=== PATIENT | male | born 1995 | race Two or more races ===

== ENCOUNTER 2017-08-15 23:05 | Inpatient (IN) | payer SELFPAY ==
[2017-08-15] MEDS ORDERED: FENTANYL CITRATE INJ/PF 100 MCG/2 ML AMPUL IV ONE (23:38)
--- NOTE | 2017-08-15 23:52 | ER Document Report ---
ED General - General Chief Complaint: Flank Pain Stated Complaint: FLANK PAIN Time Seen by Provider: 08/15/17 23:30 Mode of Arrival: Ambulatory Information source: Patient Notes: 22-year-old male presents with complaints of left flank pain difficulty urinating. Patient notes symptoms started 3 hours ago, upon examination of his abdomen there is an abscess noted of the right abdominal wall which she states has been there for 3 month duration Patient denies any fevers or chills TRAVEL OUTSIDE OF THE [place] IN LAST 30 DAYS: No - HPI Onset: Just prior to arrival Onset/Duration: Sudden Quality of pain: Achy Severity: Mild Pain Level: 1 Associated symptoms: Other Exacerbated by: Denies Relieved by: Denies Similar symptoms previously: Yes - History of kidney stone Recently seen / treated by doctor: No - Related Data Allergies/Adverse Reactions: No Known Allergies Allergy (Unverified 03/14/14 19:06) Past Medical History - Social History Smoking Status: Current Every Day Smoker Cigarette use (# per day): No Chew tobacco use (# tins/day): Yes Smoking Education Provided: No Frequency of alcohol use: Occasional Drug Abuse: None Family History: Reviewed & Not Pertinent Patient has suicidal ideation: No Patient has homicidal ideation: No Renal/ Medical History: Denies: Hx Peritoneal Dialysis - Immunizations Hx Diphtheria, Pertussis, Tetanus Vaccination: Yes Review of Systems - Review of Systems Notes: REVIEW OF SYSTEMS: CONSTITUTIONAL : Denies fever, chills, or sweats. Denies recent illness. EENT: Denies eye, ear, throat, or mouth pain or symptoms. Denies nasal or sinus congestion or discharge. Denies throat, tongue, or mouth swelling or difficulty swallowing. CARDIOVASCULAR: Denies chest pain. Denies palpitations or racing or irregular heart beat. Denies ankle edema. RESPIRATORY: Denies cough, cold, or chest congestion. Denies shortness of breath, difficulty breathing, or wheezing. GASTROINTESTINAL: Admits to left flank pain GENITOURINARY: Denies difficulty urinating, painful urination, burning, frequency, blood in urine, or discharge. MUSCULOSKELETAL: Denies back or neck pain or stiffness. Denies joint pain or swelling. SKIN: Abscess right abdomen HEMATOLOGIC : Denies easy bruising or bleeding. LYMPHATIC: Denies swollen, enlarged glands. NEUROLOGICAL: Denies confusion or altered mental status. Denies passing out or loss of consciousness. Denies dizziness or lightheadedness. Denies headache. Denies weakness or paralysis or loss of use of either side. Denies problems with gait or speech. Denies sensory loss, numbness, or tingling. Denies seizures. PSYCHIATRIC: Denies anxiety or stress. Denies depression, suicidal ideation, or homicidal ideation. ALL OTHER SYSTEMS REVIEWED AND NEGATIVE. Dictation was performed using [employer] voice recognition software PHYSICAL EXAMINATION: GENERAL: Well-appearing, well-nourished and in no acute distress. HEAD: Atraumatic, normocephalic. EYES: Pupils equal round and reactive to light, extraocular movements intact, sclera anicteric, conjunctiva are normal. ENT: Nares patent, oropharynx clear without exudates. Moist mucous membranes. NECK: Normal range of motion, supple without lymphadenopathy LUNGS: Breath sounds clear to auscultation bilaterally and equal. No wheezes rales or rhonchi. HEART: Regular rate and rhythm without murmurs ABDOMEN: Left CVA tenderness Musculoskeletal: Normal range of motion, no pitting or edema. No cyanosis. NEUROLOGICAL: Cranial nerves grossly intact. Normal speech, normal gait. Normal sensory, motor exams PSYCH: Normal mood, normal affect. SKIN: Right abdominal wall abscess measuring 10 x 10 cm with erythema Physical Exam - Vital signs Vitals: Temp Pulse BP Pulse Ox 97.5 F 99 139/81 H 99 08/15/17 23:10 08/15/17 23:10 08/15/17 23:10 08/15/17 23:10 Course - Re-evaluation Re-evalutation: 08/16/17 00:22 Patient appears has 2 separate complaints, one is for an abscess that is been there for 3 month duration the other is for left flank pain with history of kidney stone IV pain medication have been ordered CT is pending 08/16/17 00:50 CT is consistent with both kidney stone and abscess area will be incised and drained 08/16/17 00:[address] Valderrama, he requests patient follow-up in his office 08/16/17 01:28 Family notifies me that the patient had liposuction performed 3 months ago, as a result I believe this infection is much deeper than I had initially expected, I will admit the patient to the surgical list 08/16/17 06:17 Patient has been accepted - Vital Signs Vital signs: Temp Pulse Resp BP Pulse Ox 97.9 F 99 139/81 H 99 08/16/17 05:21 08/15/17 23:10 08/15/17 23:10 08/15/17 23:10 - Laboratory Result Diagrams: 08/16/17 00:28 08/16/17 00:28 Laboratory results interpreted by me: 08/16/17 08/16/17 08/16/17 00:15 00:28 00:28 WBC 15.5 H RBC 5.84 H Absolute Neutrophils 11.3 H Chloride 108 H Calcium 10.3 H Direct Bilirubin 0.5 H ALT 91 H Total Protein 8.6 H Urine Protein 30 H Urine Blood SMALL H - Diagnostic Test Radiology reviewed: Image reviewed, Reports reviewed - sub q abscess, 2 mm left kidney stone Discharge - Discharge Clinical Impression: Kidney stone on left side, Abscess of abdominal wall Condition: Stable Disposition: ADMITTED INPATIENT Admitting Provider: Surgicalist Unit Admitted: Surgical Floor Instructions: Abscess ([facility]), Kidney Stone ([facility]), Post Incision and Drainage Prescriptions: Cephalexin Monohydrate [Keflex 500 mg Capsule] 500 mg PO QID #40 capsule Oxycodone HCl/Acetaminophen [Percocet 5-325 mg Tablet] 1 tab PO Q6 #15 tab Sulfamethoxazole/Trimethoprim [Bactrim Ds Tablet] 2 each PO BID #40 tablet Tamsulosin HCl [Flomax 0.4 mg Cap.sr] 0.4 mg PO DAILY #7 cap.sr.24h
--- NOTE | 2017-08-16 00:33 | RADIOLOGY REPORT (SQ) ---
EXAM DESCRIPTION: CT ABDOMEN AND PELVIS WITHOUT CONTRAST CLINICAL HISTORY: abscess right abd wall, left flank pain COMPARISON: None Available. TECHNIQUE: CT of the abdomen and pelvis without IV contrast. FINDINGS: Abdomen: The liver has normal size and density. No calcified gallstones. The spleen, pancreas, and adrenal glands are unremarkable. No right-sided hydronephrosis or ureteral obstruction. 2 mm obstructing calculus at the left UVJ producing moderate left hydroureter and hydronephrosis. The aorta and IVC have normal caliber and position. No free intraperitoneal air. The stomach and duodenum have normal course. Pelvis: Prostate is not enlarged. Edema in the anterior abdominal wall. In the subcutaneous soft tissues there appears to be phlegmon versus fluid collection inferior to the umbilicus measuring 3.0 x 1.4 cm Urinary bladder is unremarkable. No free pelvic fluid or lymphadenopathy. No dilated loops of large or small bowel. No evidence of appendicitis. The visualized lung bases are clear. No destructive bone lesions identified. DLP: 1131.16 mGy-cm IMPRESSION: 1. There is a 0.2 cm obstructing calculus at the left UVJ producing moderate left hydroureter and hydronephrosis. 2. Edema within the subcutaneous soft tissues of the anterior abdominal wall suggesting cellulitis. 3. There is a fluid collection or phlegmon in the deep subcutaneous soft tissues of the anterior abdominal wall inferior to the umbilicus measuring 2.0 x 1.4 cm. This may represent an abscess. Correlation with contrast-enhanced CT or focused ultrasound may be helpful for more complete characterization. This exam was performed according to our departmental dose-optimization program, which includes automated exposure control, adjustment of the mA and/or kV according to patient size and/or use of iterative reconstruction technique.
[2017-08-16 00:42] LABS: ABSOLUTE BASOPHILS # (AUTO) 0.1 10^3/uL (0.0-0.2); ABSOLUTE EOSINOPHILS # (AUTO) 0.2 10^3/uL (0.0-0.6); ABSOLUTE LYMPHOCYTES (AUTO) 2.5 10^3/uL (0.5-4.7); ABSOLUTE MONOCYTES (AUTO) 1.3 10^3/uL (0.1-1.4); ABSOLUTE NEUT (AUTO) 11.3 10^3/uL (1.7-8.2); BASOPHILS % (AUTO) 0.6 % (0-2); EOSINOPHILS % (AUTO) 1.2 % (0-6); HEMATOCRIT 48.8 % (37.9-51.0); HEMOGLOBIN 16.1 g/dL (13.5-17.0); LYMPHOCYTES % (AUTO) 16.2 % (13-45); MEAN CORPUSCULAR HEMOGLOBIN 27.6 pg (27.0-33.4); MEAN CORPUSCULAR VOLUME 84 fl (80-97); MONOCYTES % (AUTO) 8.6 % (3-13); PLATELET COUNT 381 10^3/uL (150-450); RED BLOOD COUNT 5.84 10^6/uL (4.35-5.55); RED CELL DISTRIBUTION WIDTH 13.8 % (11.5-14.0); SEGMENTED NEUTROPHILS % (AUTO) 73.4 % (42-78); TOTAL CELLS COUNTED % (AUTO) 100 %; WHITE BLOOD COUNT 15.5 10^3/uL (4.0-10.5)
[2017-08-16] MEDS ORDERED: LIDOCAINE 1% INJ-PF (10 MG/ML) 30 ML SDV INJ ONE (00:50)
[2017-08-16] MEDS ORDERED: SULFAMETHOXAZOLE/TRIMETHOPRIM 800-160 MG TABLET PO ONE (00:50)
[2017-08-16] MEDS ORDERED: CLINDAMYCIN 600 MG/D5W RTU 600 MG/50 ML RTUPB IV ONE (00:58)
[2017-08-16 01:00] LABS: ALANINE AMINOTRANSFERASE 91 U/L (21-72); ALBUMIN 4.8 g/dL (3.5-5.0); ALKALINE PHOSPHATASE 62 U/L (38-126); ANION GAP 13 (5-19); ASPARTATE AMINO TRANSFERASE 44 U/L (17-59); BILIRUBIN,DIRECT 0.5 mg/dL (0.0-0.4); BILIRUBIN,TOTAL 0.6 mg/dL (0.2-1.3); BLOOD UREA NITROGEN 15 mg/dL (7-20); CALCIUM 10.3 mg/dL (8.4-10.2); CARBON DIOXIDE 22 mmol/L (22-30); CHLORIDE 108 mmol/L (98-107); GLUCOSE 101 mg/dL (75-110); POTASSIUM 4.5 mmol/L (3.6-5.0); SODIUM 143.1 mmol/L (137-145); TOTAL PROTEIN 8.6 g/dL (6.3-8.2)
[2017-08-16] MEDS ORDERED: KETOROLAC TROMETHAMINE INJ/PF 30 MG/1 ML SDV IV ONE (01:00)
[2017-08-16 01:31] LABS: AMORPHOUS SEDIMENT,URINE TRACE /HPF; APPEARANCE,URINE TURBID; BILIRUBIN,URINE NEGATIVE (NEGATIVE); COLOR,URINE YELLOW; GLUCOSE, URINE NEGATIVE (NEGATIVE); KETONES,URINE NEGATIVE (NEGATIVE); LEUKOCYTE ESTERASE,URINE NEGATIVE (NEGATIVE); NITRITE,URINE NEGATIVE (NEGATIVE); PROTEIN,URINE 30 mg/dL (NEGATIVE); URINE SPECIFIC GRAVITY 1.038; UROBILINOGEN,URINE NEGATIVE mg/dL (<2.0)
[2017-08-16] MEDS: NORMAL SALINE 1000 ML 1,000 ML IV PRN ×4 (07:07→17:11)
--- NOTE | 2017-08-16 07:09 | PDOC H&P ---
History of Present Illness Admission Date/PCP: 08/16/17 06:30 History of Present Illness: NIVIA MATTHEWS is a 22 year old male Presents the emergency department complaining of left flank pain, and right abdominal wall swelling. Patient was seen in the emergency department by Dr. Chris Rice who initially felt the patient might have a kidney stone obtain a CT scan of the abdomen and pelvis which showed abdominal wall infection , probable phlegmon. Surgery was consulted, and the patient was advised admission. The patient is reportedly a [place] of [place], lives in the [place], underwent abdominoplasty in a [place] on June 16. Patient is not forth with his history provision. Nonetheless the patient says since surgery he has had abdominal wall swelling. He denies having had drains placed. No medical records to verify his history. Studies had progressive swelling, pain, redness of the abdominal wall, mostly to the right of the umbilicus. He has not eaten in 3 days. Is found on examination to have swelling of the abdominal wall, tenderness, and a leukocytosis. He denies previous infection. Past Medical History Medical History: None Past Surgical History Past Surgical History: As per HPI Social History Smoking Status: Current Every Day Smoker Frequency of Alcohol Use: None Hx Recreational Drug Use: No Hx Prescription Drug Abuse: No Family History Family History: Reviewed & Not Pertinent Parental Family History Reviewed: Yes Children Family History Reviewed: Yes Sibling(s) Family History Reviewed.: Yes Medication/Allergy Home Medications: Hydrocodone/Acetaminophen [Olpe 5-325 mg Tablet] 1 tab PO Q6 #10 tablet Omeprazole 1 tab PO DAILY 03/14/14 Cephalexin Monohydrate [Keflex 500 mg Capsule] 500 mg PO QID #40 capsule Oxycodone HCl/Acetaminophen [Percocet 5-325 mg Tablet] 1 tab PO Q6 #15 tab 08/16 Sulfamethoxazole/Trimethoprim [Bactrim Ds Tablet] 2 each PO BID #40 tablet 08/16 Tamsulosin HCl [Flomax 0.4 mg Cap.sr] 0.4 mg PO DAILY #7 cap.sr.24h 08/16/17 Allergies/Adverse Reactions: No Known Allergies Allergy (Unverified 03/14/14 19:06) Review of Systems Constitutional: PRESENT: as per HPI Eyes: ABSENT: visual disturbances Ears: ABSENT: hearing changes Cardiovascular: ABSENT: chest pain, dyspnea on exertion, edema, orthropnea, palpitations Genitourinary: PRESENT: as per HPI Musculoskeletal: ABSENT: joint swelling Integumentary: PRESENT: as per HPI Physical Exam Vital Signs: Temp Pulse Resp BP Pulse Ox 97.9 F 70 18 132/87 H 95 08/16/17 05:21 08/16/17 06:21 08/16/17 06:21 08/16/17 06:21 08/16/17 06:21 General appearance: PRESENT: no acute distress Head exam: PRESENT: normocephalic Eye exam: PRESENT: EOMI Ear exam: PRESENT: normal external ear exam Neck exam: PRESENT: full ROM Respiratory exam: PRESENT: clear to auscultation remigio Cardiovascular exam: PRESENT: RRR Pulses: PRESENT: normal carotid pulses, normal radial pulses, normal femoral pulses GI/Abdominal exam: PRESENT: other - Evidence of previous abdominal wall reconstruction including a Pfannenstiel incision and periumbilical incision; no drains; severe erythema of the abdominal wall periumbilical; with focal area of tenderness inferior and to the right of the umbilicus. Psychiatric exam: PRESENT: appropriate affect, other - Minimal conversation Results Impressions: Limited or Localized CT 08/15/17 23:38 IMPRESSION: 1. There is a 0.2 cm obstructing calculus at the left UVJ producing moderate left hydroureter and hydronephrosis. 2. Edema within the subcutaneous soft tissues of the anterior abdominal wall suggesting cellulitis. 3. There is a fluid collection or phlegmon in the deep subcutaneous soft tissues of the anterior abdominal wall inferior to the umbilicus measuring 2.0 x 1.4 cm. This may represent an abscess. Correlation with contrast-enhanced CT or focused ultrasound may be helpful for more complete characterization. This exam was performed according to our departmental dose-optimization program, which includes automated exposure control, adjustment of the mA and/or kV according to patient size and/or use of iterative reconstruction technique. Assessment & Plan - Diagnosis (1) Abscess of abdominal wall Is this a current diagnosis for this admission?: Yes Plan: Impression is abdominal wall infection including abscess in the periumbilical region that he needs drainage. Patient is status post panniculectomy 2 months ago in [place]; details unknown. The patient has low-grade sepsis. Recommendations: 1. Mid to surgical service keep n.p.o., IV fluid hydration, and intravenous antibiotics 2. Take patient to the operating room for incision and debridement drainage possible drain placement possible packing abdominal wall, main operating room, general anesthesia. I also explained to the patient he may require more than one operation. There is mild language barrier but I believe the patient understands and agrees to proceed. (2) Status post panniculectomy Is this a current diagnosis for this admission?: Yes (3) Kidney stone on left side Is this a current diagnosis for this admission?: Yes (4) Obesity Is this a current diagnosis for this admission?: Yes - Time Time Spent: 50 to 70 Minutes Critical Time spent with patient: 15-24 minutes Anticipated discharge: Home - Inpatient Certification Based on my medical assessment, after consideration of the patient's comorbidities, presenting symptoms, or acuity I expect that the services needed warrant INPATIENT care.: Yes I certify that my determination is in accordance with my understanding of Medicare's requirements for reasonable and necessary INPATIENT services [42 CFR 412.3e].: Yes Medical Necessity: Need for Pain Control, Need for IV Antibiotics, Need for Surgery
[2017-08-16] MEDS ORDERED: FENTANYL CITRATE INJ/PF 100 MCG/2 ML AMPUL ONE (08:08)
[2017-08-16] MEDS ORDERED: ONDANSETRON HCL INJ/PF 4 MG/2 ML SDV ONE (08:09)
[2017-08-16] MEDS ORDERED: MIDAZOLAM 2 MG/2 ML INJ ONE (08:09)
[2017-08-16] MEDS ORDERED: PROPOFOL INJ 200 MG/20 ML VIAL IV ONE (08:09)
[2017-08-16] MEDS ORDERED: LIDOCAINE 2% INJ-PF (20 MG/ML) 10 ML AMPUL ONE (08:16)
[2017-08-16] MEDS ORDERED: CEFAZOLIN INJ 1 GM VIAL ONE (08:27)
[2017-08-16] MEDS ORDERED: FENTANYL CITRATE INJ/PF 100 MCG/2 ML AMPUL IV PRN ×3 (08:43)
[2017-08-16] MEDS ORDERED: MEPERIDINE HCL/PF INJ 25 MG/1 ML DISP.SYRIN IV PRN (08:43)
[2017-08-16] MEDS ORDERED: MORPHINE SULFATE 10 MG/ML INJ IV PRN (08:43)
[2017-08-16] MEDS ORDERED: DIPHENHYDRAMINE HCL 50 MG/ML VIAL IV PRN (08:43)
[2017-08-16] MEDS ORDERED: PROMETHAZINE HCL INJ 25 MG/1 ML VIAL IV PRN (08:43)
[2017-08-16] MEDS ORDERED: KETOROLAC TROMETHAMINE 10 MG TABLET PO PRN (08:59)
[2017-08-16] MEDS ORDERED: ONDANSETRON HCL INJ/PF 4 MG/2 ML SDV IV PRN (08:59)
[2017-08-16] MEDS ORDERED: KETOROLAC TROMETHAMINE INJ/PF 30 MG/1 ML SDV IV PRN (08:59)
[2017-08-16] MEDS ORDERED: OXYCODONE-ACETAMINOPHEN 5-325 MG TABLET PO PRN (08:59)
[2017-08-16] MEDS ORDERED: CEFAZOLIN 1 GM/D5W RTU 50 ML IV SCH (09:00)
--- NOTE | 2017-08-16 09:05 | Operative Report ---
Operative Report DATE OF SURGERY: 08/16/17 PREOPERATIVE DIAGNOSIS: Abdominal wall cellulitis, panniculitis, with organizing phlegmon POSTOPERATIVE DIAGNOSIS: Same OPERATION: Debridement abdominal wall including subcutaneous tissue, wound packing and Beverly loop drain placement SURGEON: JOSSE HOOPER ANESTHESIA: GA TISSUE REMOVED OR ALTERED: Necrotic skin, fat COMPLICATIONS: None ESTIMATED BLOOD LOSS: Scant INTRAOPERATIVE FINDINGS: See below PROCEDURE: Patient was taken to the operating room where general anesthesia was used. Abdominal wall prepped draped in sterile fashion. Surgical plan and surgical timeout were conducted. Findings were significant for generalized abdominal wall erythema involving the pulldown anterior abdominal wall flap. Patient had undergone conventional panniculectomy with repositioning of the umbilicus, and down of the anterior skin to the pelvic tissue. There was no evidence of skin necrosis or non- viability. Based on physical exam findings, CT scanning, the nidus of infection was to the right and below the umbilicus. Therefore a transverse incision was made 24 cm long. We immediately encountered necrotic fat which was sent for culture and sensitivity. Was fatty-purulent drainage but no foul smell. An ellipse of skin was removed with a #10 blade. This enabled us to break up loculations in the superficial and deep venous tissue. The infection was confined to the abdominal wall above the fascia. The infection extended above the umbilicus stalk, and inferiorly under a portion of the elevated panniculus towards the patient's right lower quadrant. Using a combination of blunt, Ayanna dissection , and her Reading, all loculations and nonviable fat pockets were broken up vigorously. A counter incision was made a clear oriented above the umbilicus, and a large Nicanor drain was placed between the index incision to the right and inferior to the umbilicus and the vertically oriented incision above the umbilicus. Wound irrigated and packed with iodoform packing and Curlex through both primary incision and counterincision above the umbilicus. Tolerated procedure well, extubated and taken recovery in stable condition.
[2017-08-16] MEDS: DOCUSATE SODIUM 100 MG CAPSULE PO SCH ×2 (14:01→17:11)
[2017-08-16] MEDS ORDERED: SUCCINYLCHOLINE CHLORIDE INJ 200 MG/10 ML VIAL ONE (15:04)
[2017-08-16] MEDS: CEFAZOLIN 1 GM/D5W RTU 1 GM/50 ML RTUPB IV SCH (17:09)
[2017-08-17] MEDS: NORMAL SALINE 1000 ML 1,000 ML IV PRN ×2 (09:26→09:29)
[2017-08-17] MEDS: CEFAZOLIN 1 GM/D5W RTU 1 GM/50 ML RTUPB IV SCH ×2 (09:26→09:30)
[2017-08-17] MEDS: DOCUSATE SODIUM 100 MG CAPSULE PO SCH (09:30)
[2017-08-17] MEDS ORDERED: ONDANSETRON HCL INJ/PF 4 MG/2 ML SDV IV PRN (12:30)
[2017-08-17 13:46] VITALS: BP 112/63
--- NOTE | 2017-08-17 17:08 | DISCHARGE SUMMARY E ---
Discharge Summary NAME: NIVIA MATTHEWS : 1995 AGE: 22Y ADMITTED: 08/16/2017 DISCHARGED: 08/17/2017 PROCEDURE: Done 08/16/17 incision and drainage and debridement of abdominal wall abscess. SURGEON: Dr. Valderrama. HOSPITAL COURSE: This is a 22-year-old male who underwent panniculectomy for obesity in June 16 in [facility]. Postoperatively, the patient has been having pains, abdominal wall, and noted to have an abscess. This was drained and debrided in the OR by Dr. Valderrama on the day of admission on 08/16/17. The packing was removed in the ICU on 08/17/17. The wound appears to be with no drainage. The area was then re-packed with half inch Iodoform gauze. Arrangements were made to have a visiting nurse check the wound on a daily basis, and the patient to [facility]. Prescription for clindamycin 300 mg p.o. t.i.d. for about 10 days was given as well as Toradol 10 mg p.o. every 8 hours as needed. FINAL DIAGNOSIS: Abdominal wound abscess post abdominoplasty DICTATING PHYSICIAN: HARMONY CERON M.D. [id number] PHY#: [id number] ID: [id number] JOB#: [id number] ACCT: [id number] cc:NO Maritza MORRELL M.D. [facility], > [facility]
== END 2017-08-17 14:26 | disposition home health service (06) | DRG 857 ==
LOC: ER 23:05 → EH 08-16 06:30 → ICU 08-16 10:10
PROVIDERS: ADMIT Surgery; ATTEND Surgery
PROC: 0JB80ZZ Excision of Abdomen Subcutaneous Tissue and Fascia, Open Approach (ICD-10-PCS; principal; 2017-08-16 08:30)
DX: T81.4XXA Infection following a procedure, initial encounter (principal); L02.211 Cutaneous abscess of abdominal wall; L03.311 Cellulitis of abdominal wall; Z68.41 Body mass index [BMI] 40.0-44.9, adult; M79.3 Panniculitis, unspecified; Y83.8 Other surgical procedures as the cause of abnormal reaction of the patient, or of later complication, without mention of misadventure at the time of the procedure; F17.200 Nicotine dependence, unspecified, uncomplicated; E66.9 Obesity, unspecified; N20.0 Calculus of kidney; Z88.8 Allergy status to other drugs, medicaments and biological substances
CPT/HCPCS: 36415; 700; 76380; 80053; 81001; 85025; 87040; 87070; 87075; 87205; 96365; 96375; 99285; A6266; J0330; J0690; J1885; J2250; J2405; J2704; J3010; J3490; J7030

== ENCOUNTER 2018-04-20 19:16 | Emergency (ER) | payer MEDICAID, OTHER ==
--- NOTE | 2018-04-20 20:45 | RADIOLOGY REPORT (SQ) ---
EXAM DESCRIPTION: KNEE RIGHT 4 VIEWS COMPLETED DATE/TIME: 04/20/2018 8:35 pm REASON FOR STUDY: pain COMPARISON: None. NUMBER OF VIEWS: Four views. TECHNIQUE: AP, lateral, and both oblique radiographic images acquired of the right knee. LIMITATIONS: None. FINDINGS: MINERALIZATION: Normal. BONES: No acute fracture or dislocation. No worrisome bone lesions. JOINT: No effusion. SOFT TISSUES: No soft tissue swelling. No radio-opaque foreign body. OTHER: No other significant finding. IMPRESSION: NEGATIVE STUDY OF THE RIGHT KNEE. NO RADIOGRAPHIC EVIDENCE OF ACUTE INJURY. TECHNICAL DOCUMENTATION: JOB ID: [id number] [employer]- All Rights Reserved Reading location - IP/workstation name: [email or web address]
--- NOTE | 2018-04-20 20:46 | RADIOLOGY REPORT (SQ) ---
EXAM DESCRIPTION: TIBIA FIBULA RIGHT COMPLETED DATE/TIME: 04/20/2018 8:35 pm REASON FOR STUDY: pain traumatic injury run/jump felt pop COMPARISON: None. NUMBER OF VIEWS: Two views. TECHNIQUE: Two radiographic images acquired of the right tibia and fibula to include the knee and an kle in at least one projection. LIMITATIONS: None. FINDINGS: MINERALIZATION: Normal. BONES: No acute fracture or dislocation. No worrisome bone lesions. SOFT TISSUES: There is a small radiopaque foreign body near the head of the fibula. OTHER: No other significant finding. IMPRESSION: NEGATIVE STUDY OF THE RIGHT TIBIA AND FIBULA. NO RADIOGRAPHIC EVIDENCE OF ACUTE INJURY. TECHNICAL DOCUMENTATION: JOB ID: [id number] [employer]- All Rights Reserved Reading location - IP/workstation name: [email or web address]
--- NOTE | 2018-04-20 21:01 | ER Document Report ---
ED Extremity Problem, Lower - General Chief Complaint: Leg Pain Stated Complaint: RIGHT LEG INJURY Time Seen by Provider: 04/20/18 20:13 Mode of Arrival: Ambulatory Information source: Patient Notes: Patient is a 22-year-old male comes emergency room complaining of right leg pain. 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 He has been ambulatory but it hurts to walk. Patient thinks he might of broke his leg. He denies any other injuries and he is in a hurry to get out of ER. TRAVEL OUTSIDE OF THE [place] IN LAST 30 DAYS: No - HPI Patient complains to provider of: Pain Location: Knee, Leg Occurred: This morning Where: Public place Onset/Duration: Sudden, Persistent, Worse Quality of pain: Sharp, Throbbing Severity: Moderate Pain Level: 3 Context: Wearing shoes Recent injury: Possibly Associated symptoms: Other - More difficulty to bear weight then unable to bear weight. Patient can walk on the leg. Exacerbated by: Movement, Walking - Related Data Allergies/Adverse Reactions: No Known Allergies Allergy (Unverified 03/14/14 19:06) Past Medical History - General Information source: Patient - Social History Smoking Status: Never Smoker Cigarette use (# per day): No Chew tobacco use (# tins/day): No Smoking Education Provided: No Frequency of alcohol use: None Drug Abuse: None Family History: Reviewed & Not Pertinent Patient has suicidal ideation: No Patient has homicidal ideation: No Renal/ Medical History: Denies: Hx Peritoneal Dialysis - Immunizations Hx Diphtheria, Pertussis, Tetanus Vaccination: Yes Review of Systems - Review of Systems Constitutional: No symptoms reported EENT: No symptoms reported Cardiovascular: No symptoms reported Respiratory: No symptoms reported Gastrointestinal: No symptoms reported Genitourinary: No symptoms reported Male Genitourinary: No symptoms reported Musculoskeletal: Joint pain, Joint swelling Skin: No symptoms reported Hematologic/Lymphatic: No symptoms reported Neurological/Psychological: No symptoms reported -: Yes All other systems reviewed and negative Physical Exam - Vital signs Vitals: Temp Pulse BP Pulse Ox 98.8 F 88 125/55 L 98 04/20/18 19:23 04/20/18 19:23 04/20/18 19:23 04/20/18 19:23 Interpretation: Normal - Notes Notes: 3 PHYSICAL EXAMINATION: GENERAL: Well-appearing, well-nourished and in no acute distress. HEAD: Atraumatic, normocephalic. EYES: Pupils equal round and reactive to light, extraocular movements intact, sclera anicteric, conjunctiva are normal. ENT: Nares patent, oropharynx clear without exudates. Moist mucous membranes. NECK: Normal range of motion, supple without lymphadenopathy LUNGS: Breath sounds clear to auscultation bilaterally and equal. No wheezes rales or rhonchi. HEART: Regular rate and rhythm without murmurs ABDOMEN: Soft, nontender, nondistended abdomen. No guarding, no rebound. No masses appreciated. Musculoskeletal: Examination of the area of patient's concern is his right knee lateral side. There is some tenderness noted to palpation on the right lateral aspect of the knee not a deformity but is some swelling noted more in the upper tib-fib area than the knee itself. Patient has full range of motion of the knee without any discomfort with passive and with active range of motion but has some moderate amount of tenderness to palpation in that right lower lateral side of the upper leg. Almost feels like there is an indention or a defect like a tear and a muscle on that side. Vascular turpin the exam is normal patient has good dorsalis pedal pulses as well as good popliteal pulse. NEUROLOGICAL: Patient awake alert and oriented neurologic exam is intact PSYCH: Normal mood, normal affect. SKIN: Warm, Dry, normal turgor, no rashes or lesions noted. Course - Re-evaluation Re-evalutation: 04/20/18 21:04 Patient understands Slovak fairly well and speaks fairly good Slovak himself. 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 I have discussed with him about using a knee immobilizer and given him a referral to the orthopedic doctor so they can actually examine him better than what we can here. His x-rays were totally normal. I believe he may have torn a ligament or the gastrocnemius muscle. At this time I was treating for some pain with pain medication I am going to put him in a knee immobilizer and lock it up so that he can ambulate. Given crutches but I do not believe he will use him. - Vital Signs Vital signs: Temp Pulse Resp BP Pulse Ox 98.8 F 88 125/55 L 98 04/20/18 19:23 04/20/18 19:23 04/20/18 19:23 04/20/18 19:23 Procedures - Immobilization Right Knee Time completed: 21:05 Pre-Proc Neuro Vasc Exam: Normal Performed by: PCT Post-Proc Neuro Vasc Exam: Normal, Unchanged from pre-exam - 819 Alignment checked and good: Yes Discharge - Discharge Clinical Impression: Internal derangement of right knee Gastrocnemius muscle tear Qualifiers: Encounter type: initial encounter Laterality: right Qualified Code(s): S86.111A - Strain of other muscle(s) and tendon(s) of posterior muscle group at lower leg level, right leg, initial encounter Condition: Stable Disposition: HOME, SELF-CARE Instructions: Suspected Internal Knee Injury ([facility]), Muscle Strain ([facility]) Additional Instructions: Home and use the immobilizer for the next 3-4 days. Pull it tight and this will give the stability on your leg. Medication as prescribed. As I informed you I will give you the name of the orthopedic doctor welding machine operator [employer] you may contact his office to see if they can provide any further insight as into the type of injury you have. Ice it down 3 times a day. May also take ibuprofen 800 mg 3 times a day. With food. Should you have any concerns or problems return to ER for recheck. Prescriptions: Hydrocodone/Acetaminophen [[place] 7.5-325 mg Tablet] 1 tab PO Q6 PRN #12 tablet PRN Reason:
[2018-04-20 21:22] VITALS: BP 126/67
== END 2018-04-20 21:24 | disposition home or self-care (01) ==
LOC: ER 19:16
DX: S86.111A Strain of other muscle(s) and tendon(s) of posterior muscle group at lower leg level, right leg, initial encounter (principal); X58.XXXA Exposure to other specified factors, initial encounter; Y93.39 Activity, other involving climbing, rappelling and jumping off
CPT/HCPCS: 99283; 73564; 73590; L1830

== ENCOUNTER 2020-03-02 00:17 | Emergency (ER) | payer SELFPAY | END 2020-03-02 00:45 | disposition left against medical advice (07) | LOC: ER 00:17 | DX: Z53.21 Procedure and treatment not carried out due to patient leaving prior to being seen by health care provider (principal) ==